=== PATIENT | female | born 1940 | race African-American/Black ===

== ENCOUNTER → 2017-04-17 | Outpatient (CLI) | payer MEDICARE, MEDICAID ==
--- NOTE | 2017-04-17 17:29 | WOMENS IMAGING REPORT ---
EXAM DESCRIPTION: LEFT SCREENING MAMMO W/CAD COMPLETED DATE/TIME: 04/17/2017 4:03 pm REASON FOR STUDY: ROUTINE SCREENING; Z12.31 Z12.31 ENCNTR SCREEN MAMMOGRAM FOR MALIGNANT NEOPLASM O F ENEIDA COMPARISON: 08/02/2013 and 07/24/2012. TECHNIQUE: Standard craniocaudal and mediolateral oblique views of the breast recorded using digital acquisition. LIMITATIONS: None. FINDINGS: BREAST: left Findings present which are benign by mammographic criteria. No suspicious masses, calcifications or a rchitectural distortion. Pertinent benign findings: Stable calcifications. Read with the assistance of CAD. .[facility] - R2 Cenova Version 1.3 .[facility] Imaging - R2 Cenova Version 1.3 .[facility] - R2 Cenova Version 2.4 .[facility] - R2 Cenova Version 2.4 .[facility] - R2 All Source Intelligence Version 9.2 Benign mammographic findings may include one or more of the following: Smooth masses, popcorn/rim/co arse calcifications, asymmetries, post-procedure changes, and lesions with long-standing stability. IMPRESSION: NORMAL MAMMOGRAM. BIRADS 2. BREAST DENSITY: b. There are scattered areas of fibroglandular density. BIRAD: 2 BENIGN FINDING(S) RECOMMENDATION: RECOMMENDATION: ROUTINE SCREENING. COMMENT: The patient has been notified of the results by letter per SA requirements. Additional no tification policies are in place for contacting patient with suspicious or incomplete findings. Quality ID #[id number]: The [employer] recommends an annual screening mammogram for women aged 40 years or over. This facility utilizes a reminder system to ensure that all patients receive reminder letters, and/or direct phone calls for appointments. This includes reminders for routine scr eening mammograms, diagnostic mammograms, or other Breast Imaging Interventions when appropriate. Th is patient will be placed in the appropriate reminder system. The [employer] (ACR) has developed recommendations for screening MRI of the breast s in certain patient populations, to be used in conjunction with mammography. Breast MRI surveillance may be appropriate for women with more than 20% lifetime risk of developing breast cancer as determi david by genetic testing, significant family history of the disease, or history of mantle radiation for Hodgkins Disease. ACR Practice Guidelines 2008. TECHNICAL DOCUMENTATION: FINDING NUMBER: (1) ASSESSMENT: (1) JOB ID: [id number] [employer]- All Rights Reserved
== END ==
LOC: WI 15:21
PROVIDERS: ATTEND Internal Medicine
DX: Z12.31 Encounter for screening mammogram for malignant neoplasm of breast (principal)
CPT/HCPCS: G0202-52

== ENCOUNTER → 2017-06-21 | Outpatient (CLI) | payer MEDICARE, MEDICAID ==
[~2017-06-21] MED LIST: AMINOPHYLLINE INJ/PF 250 MG/10 ML SDV IV ONE; REGADENOSON INJ 0.4 MG/5 ML DISP.SYRIN IV ONE
--- NOTE | 2017-06-22 11:04 | DRAGON STRESS TEST REPORT ---
INTRAVENOUS LEXISCAN CARDIOLITE STRESS TEST USING SINGLE PHOTON EMMISION COMPUTERIZED TOMOGRAPHIC. INDICATION : Coronary artery disease CARDIAC RISK FACTORS: Hypertension, dyslipidemia, history of heart disease with stent placement in 2010 RESTING EKG: Sinus rhythm without any baseline ST-T wave changes STRESS EKG: No significant changes noted with LexiScan bolus REASON FOR TERMINATION: Protocol. PROCEDURE REPORT: Baseline heart rate 77 beats per minute with blood pressure of 149/80. Patient had no significant complaints. Heart rate at 2 minutes post bolus 96 with a blood pressure of 146/83 3 minutes post bolus heart rate 86 with blood pressure of 122/80. No significant EKG changes were noted. Patient had no significant complaints during the procedure or postprocedure. Patient injected with Aminophyllin 75 mg at 3 minutes or later after Lexiscan bolus. CONCLUSIONS: Normal EKG and hemodynamic response to IV LexiScan. NUCLEAR DATA: At rest the patient was given 9.40 millicuries of technetium 99 sestamibi injected intravenously. As per protocol rest gated SPECT images were obtained. Subsequently the patient was given intravenous LexiScan at a dose of 0.4 mg in 5 mL intravenously, followed by flush with normal saline. Subsequently the stress dose of 32.9 millicuries of technetium 99 sestamibi was injected intravenously. As per protocol stress gated images were obtained. NUCLEAR INTERPRETATION: Both raw and processed data were used for interpretation. Visual, qualitative, computer-generated quantitative data was used. There was good myocardial uptake of technetium compound. Motion artifact and soft tissue attenuations were noted. Increased visceral uptake was noted. No definitive areas of transient perfusion defect noted. No definitive areas of fixed perfusion defect or scars noted, except for mild fixed defect in the mid and basal inferior wall consistent with prior myocardial infarction. EKG gated imaging showed LV EF at 54 %, rest and stress gated EF similar visually. Mild basal and mid inferior wall hypokinesia noted. T I D. ratio was 0.92. Lung heart ratio noted to be within normal limits 0.26. No significant extracardiac and abnormal radiotracer activities were noted. RV free wall uptake was noted to be WNL. IMPRESSION: Also refer to comments under nuclear interpretation. Also test results needs to be interpreted in the context of pretest probability. 1. There is no definitive scintigraphic evidence of LexiScan induced myocardial ischemia. 2. Mild fixed defect noted in the mid and basal inferior wall consistent with mild scar. 3. EKG gated imaging shows left ventricular ejection fraction of approximately 54% mild basal and mid inferior wall hypokinesia noted. 4. Clinical correlation requested as occasionally single vessel disease or balanced ischemia could be missed. In approximately 10% of the cases Lexiscan may not cause adequate vasodilatory stress. RECOMMENDATIONS: Aggressive risk factor modification, medical therapy. Clinical correlation with echocardiogram derived ejection fraction. Inability to exercise by itself can lead to increased cardiovascular event risks. Consider cardiology consultation and or follow-up if clinically indicated. I AM AVAILABLE FOR CARDIOLOGY CONSULTATION AND FOLLOWUP IF REQUESTED BY PMD Freida Chambers M.D., MASOU[place] Registered Art Therapist receiving worker, Board certified in cardiovascular diseases, Nuclear cardiology, Echocardiography Cardiac CT and cardiac MRI Ph. [phone] [facility]
== END ==
LOC: RAD 07:13
PROVIDERS: ATTEND Internal Medicine
DX: I25.10 Atherosclerotic heart disease of native coronary artery without angina pectoris (principal)
CPT/HCPCS: 93017; 78452; A9500; J2785; J0280; Q9969

== ENCOUNTER 2017-08-18 16:58 | Observation (INO) | payer MEDICARE, MEDICAID ==
[2017-08-18] MEDS ORDERED: NORMAL SALINE 1000 ML 1,000 ML IV PRN (18:11)
--- NOTE | 2017-08-18 18:25 | EKG REPORT ---
SEVERITY:- ABNORMAL ECG - SINUS RHYTHM BORDERLINE T WAVE ABNORMALITIES : Confirmed by: Gilmar Fernando MD 18-Aug-2017 18:25:10
[2017-08-18] MEDS ORDERED: INFLUENZA ADLT QUAD (36MOS+) 2017-18 VAC 0.5 ML SYR IM PRN (18:39)
--- NOTE | 2017-08-18 18:40 | RADIOLOGY REPORT (SQ) ---
EXAM DESCRIPTION: CHEST SINGLE VIEW COMPLETED DATE/TIME: 08/18/2017 6:31 pm REASON FOR STUDY: hypotension/chest pain COMPARISON: 10/06/2011 EXAM PARAMETERS: NUMBER OF VIEWS: One view. TECHNIQUE: Single frontal radiographic view of the chest acquired. RADIATION DOSE: NA LIMITATIONS: None. FINDINGS: LUNGS AND PLEURA: No opacities, masses or pneumothorax. No pleural effusion. MEDIASTINUM AND HILAR STRUCTURES: No masses. Contour normal. HEART AND VASCULAR STRUCTURES: Heart normal in size. Normal vasculature. BONES: No acute findings. HARDWARE: None in the chest. OTHER: No other significant finding. IMPRESSION: NO ACUTE RADIOGRAPHIC FINDING IN THE CHEST. TECHNICAL DOCUMENTATION: JOB ID: [id number]
[2017-08-18] MEDS ORDERED: LIDOCAINE 1% INJ-PF (10 MG/ML) 30 ML SDV ONE (18:59)
[2017-08-18 21:46] LABS: HEMATOCRIT 34.6 % (36.0-47.0); HEMOGLOBIN 11.9 g/dL (12.0-15.5); HGB HCT DIFFERENCE 1.1; MEAN CORPUSCULAR HEMOGLOBIN 31.2 pg (27.0-33.4); MEAN CORPUSCULAR HGB CONC 34.5 g/dL (32.0-36.0); MEAN CORPUSCULAR VOLUME 91 fl (80-97); RED BLOOD COUNT 3.82 10^6/uL (3.72-5.28); RED CELL DISTRIBUTION WIDTH 13.7 % (11.5-14.0)
--- NOTE | 2017-08-18 21:53 | OPERATIVE REPORT E ---
Operative Report NAME: ALEISHA MIMS : 1940 AGE: 77Y DATE OF SURGERY: 08/18/2017 ROOM: 309 PREOPERATIVE DIAGNOSIS: Poor veins for IV access. POSTOPERATIVE DIAGNOSIS: Poor veins for IV access. OPERATIONS: Placement of central line right internal jugular vein. SURGEON: CORBY BECERRA M.D. ANESTHESIA: Local. INDICATION: This is a 77-year-old female who has poor veins for IV access and needed a central line. DESCRIPTION OF PROCEDURE: The patient was placed in Trendelenburg position, the right neck prepped and draped in the usual sterile fashion. Local anesthesia was infiltrated above the clavicle between the sternal and clavicular head of the sternocleidomastoid muscle. The right internal jugular vein was then punctured and guidewire passed through the needle in the direction of the superior vena cava. The insertion site was then dilated and a triple lumen inserted through the guidewire to a distance of about 15 cm. Next, the catheter was then anchored to the skin with 3-0 silk. All the 3 ports were then irrigated nicely and aspirated blood easily. A Biopatch was placed at the insertion site and a transparent dressing placed over the catheter. The patient tolerated the procedure well. A chest x-ray will be obtained for placement to rule out any pneumothorax. DICTATING PHYSICIAN: CORBY BECERRA M.D. [id number] PHY#: [id number] ID: [id number] JOB#: [id number] ACCT: [id number] cc:CORBY BECERRA M.D. >
--- NOTE | 2017-08-18 21:57 | RADIOLOGY REPORT (SQ) ---
EXAM DESCRIPTION: CHEST SINGLE VIEW COMPLETED DATE/TIME: 08/18/2017 9:42 pm REASON FOR STUDY: central line verification COMPARISON: 08/18/2017 EXAM PARAMETERS: NUMBER OF VIEWS: One view. TECHNIQUE: Single frontal radiographic view of the chest acquired. RADIATION DOSE: NA LIMITATIONS: None. FINDINGS: LUNGS AND PLEURA: No opacities, masses or pneumothorax. No pleural effusion. MEDIASTINUM AND HILAR STRUCTURES: No masses. Contour stable. HEART AND VASCULAR STRUCTURES: Heart normal in size. Normal vasculature. BONES: No acute findings. HARDWARE: Right IJ venous catheter terminates within the caval atrial junction. Surgical clips right axilla/ chest wall. OTHER: No other significant finding. IMPRESSION: SATISFACTORY PLACEMENT OF RIGHT IJ VENOUS CATHETER WITHOUT COMPLICATION. OTHERWISE STAB LE APPEARANCE OF THE CHEST. TECHNICAL DOCUMENTATION: JOB ID: [id number]
[2017-08-18 22:03] LABS: ALANINE AMINOTRANSFERASE 20 U/L (9-52); ALBUMIN 3.5 g/dL (3.5-5.0); ALKALINE PHOSPHATASE 114 U/L (38-126); ANION GAP 9 (5-19); ASPARTATE AMINO TRANSFERASE 21 U/L (14-36); BILIRUBIN,DIRECT 0.3 mg/dL (0.0-0.4); BILIRUBIN,TOTAL 0.6 mg/dL (0.2-1.3); BLOOD UREA NITROGEN 19 mg/dL (7-20); CALCIUM 9.9 mg/dL (8.4-10.2); CARBON DIOXIDE 25 mmol/L (22-30); CHLORIDE 94 mmol/L (98-107); CREATINE KINASE 51 U/L (30-135); CREATININE RESULT 1.29 mg/dL (0.52-1.25); GLUCOSE 143 mg/dL (75-110); POTASSIUM 3.8 mmol/L (3.6-5.0); SODIUM 128.1 mmol/L (137-145)
[2017-08-18 22:13] LABS: CREATINE KINASE MB 1.49 ng/mL (<4.55)
[2017-08-18 22:17] LABS: TROPONIN I < 0.012 ng/mL
[2017-08-19 00:28] LABS: APPEARANCE,URINE SLIGHTLY-CLOUDY; BILIRUBIN,URINE NEGATIVE (NEGATIVE); GLUCOSE, URINE NEGATIVE (NEGATIVE); KETONES,URINE NEGATIVE (NEGATIVE); LEUKOCYTE ESTERASE,URINE LARGE (NEGATIVE); NITRITE,URINE NEGATIVE (NEGATIVE); PROTEIN,URINE NEGATIVE (NEGATIVE); URINE SPECIFIC GRAVITY 1.012; UROBILINOGEN,URINE NEGATIVE mg/dL (<2.0)
[2017-08-19 06:55] LABS: CREATINE KINASE MB 0.81 ng/mL (<4.55); TROPONIN I 0.016 ng/mL
[2017-08-19 11:09] LABS: ALANINE AMINOTRANSFERASE 17 U/L (9-52); ALBUMIN 3.2 g/dL (3.5-5.0); ALKALINE PHOSPHATASE 104 U/L (38-126); ANION GAP 11 (5-19); ASPARTATE AMINO TRANSFERASE 20 U/L (14-36); BILIRUBIN,DIRECT 0.3 mg/dL (0.0-0.4); BILIRUBIN,TOTAL 0.6 mg/dL (0.2-1.3); BLOOD UREA NITROGEN 14 mg/dL (7-20); CALCIUM 9.4 mg/dL (8.4-10.2); CARBON DIOXIDE 23 mmol/L (22-30); CHLORIDE 100 mmol/L (98-107); CREATININE RESULT 1.09 mg/dL (0.52-1.25); GLUCOSE 154 mg/dL (75-110); POTASSIUM 3.8 mmol/L (3.6-5.0); SODIUM 133.7 mmol/L (137-145); TOTAL PROTEIN 6.5 g/dL (6.3-8.2)
--- NOTE | 2017-08-19 11:57 | PDOC H&P ---
History of Present Illness Admission Date/PCP: 08/18/17 16:58 MARLENE BELTRÁN MD History of Present Illness: ALEISHA MIMS is a 77 year old female, she has a history of ischemic heart disease, baseline dementia, she came to the office with family for evaluation of , weakness, fatigue, dizziness and low blood pressure. In the office she was evaluated the blood pressure could not be recorded, she was admitted directly from the office into the hospital for evaluation of the low blood pressure. When she arrived on the floor in the hospital the blood pressure recorded was 90 systolic, the blood work showed serum creatinine 1.2, the urine dipstick was positive for leukocyte esterase with pyuria but she had no urinary symptoms of frequency dysuria or urgency. She was admitted for observation, she was treated with IV fluids subsequent blood pressure was normal Past Medical History Cardiac Medical History: Reports: Myocardial Infarction, Hypertension Pulmonary Medical History: Reports: Pneumonia Malignancy Medical History: Reports: Breast Cancer - Rt Breast GI Medical History: Reports: Gastroesophageal Reflux Disease Musculoskeltal Medical History: Reports: Arthritis Psychiatric Medical History: Reports: Dementia Hematology: Past Surgical History Past Surgical History: Reports: Appendectomy, Cardiac Catheterization, Coronary Stent, Mastectomy - RT BREAST REMOVED, AVOID RT ARM Social History Smoking Status: Former Smoker Frequency of Alcohol Use: None Hx Recreational Drug Use: No Hx Prescription Drug Abuse: No Family History Family History: Reviewed & Not Pertinent Parental Family History Reviewed: Yes Children Family History Reviewed: Yes Sibling(s) Family History Reviewed.: Yes Medication/Allergy Home Medications: Clopidogrel Bisulfate [Plavix 75 Mg Tablet] 75 mg PO DAILY 10/06/11 Metoprolol Succinate [Toprol-Xl 50 Mg Tab.Sr] 50 mg PO DAILY 10/06/11 Pantoprazole Sodium 40 mg PO DAILY 10/06/11 Valsartan/Hydrochlorothiazide [Diovan Hct 160-25 mg Tablet] 1 tab PO DAILY 10/06 Acetaminophen [Non-Aspirin Pain Relief] 2 tab PO DAILY 08/18/17 Aspirin [Aspirin EC] 81 mg PO DAILY 08/18/17 Atorvastatin Calcium [Lipitor 80 mg Tablet] 1 tab PO DAILY 08/18/17 Donepezil HCl 1 tab PO QHS 08/18/17 Multivit-Min/Iron/Folic/Lutein [Centrum Silver Women Tablet] 1 each PO DAILY Allergies/Adverse Reactions: oxycodone HCl [From Percocet] Allergy (Verified 01/31/11 11:45) Generalized Itching codeine Adverse Reaction (Mild, Verified 08/19/17 05:53) Review of Systems Constitutional: PRESENT: anorexia Eyes: ABSENT: visual disturbances Ears: ABSENT: hearing changes Cardiovascular: ABSENT: chest pain, dyspnea on exertion, edema, orthropnea, palpitations Respiratory: ABSENT: cough, hemoptysis Gastrointestinal: ABSENT: abdominal pain, constipation, diarrhea, hematemesis, hematochezia, nausea, vomiting Genitourinary: ABSENT: dysuria, hematuria Musculoskeletal: ABSENT: joint swelling Integumentary: ABSENT: rash, wounds Neurological: ABSENT: abnormal gait, abnormal speech, confusion, dizziness, focal weakness, syncope Psychiatric: ABSENT: anxiety, depression, homidical ideation, suicidal ideation Endocrine: ABSENT: cold intolerance, heat intolerance, menstrual abnormalities, polydipsia, polyuria Hematologic/Lymphatic: ABSENT: easy bleeding, easy bruising, lymphadenopathy Physical Exam Vital Signs: Temp Pulse Resp BP Pulse Ox 98.1 F 71 18 117/58 L 98 08/19/17 04:01 08/19/17 07:00 08/19/17 04:01 08/19/17 04:01 08/19/17 04:01 Intake & Output 08/18/17 08/19/17 08/20/17 06:59 06:59 06:59 Intake Total 1630 Output Total 700 Balance 930 Weight 67.132 kg General appearance: PRESENT: no acute distress, well-developed, well-nourished Head exam: PRESENT: atraumatic, normocephalic Eye exam: PRESENT: conjunctiva pink, EOMI, PERRLA Ear exam: PRESENT: normal external ear exam Mouth exam: PRESENT: moist, tongue midline Neck exam: PRESENT: full ROM Respiratory exam: PRESENT: clear to auscultation desiree Cardiovascular exam: PRESENT: RRR, +S1, +S2 Pulses: PRESENT: normal dorsalis pedis pul, +2 pedal pulses bilateral Vascular exam: PRESENT: normal capillary refill GI/Abdominal exam: PRESENT: normal bowel sounds, soft Rectal exam: PRESENT: deferred Neurological exam: PRESENT: alert, awake, oriented to person, oriented to place , oriented to time, oriented to situation, CN II-XII grossly intact Psychiatric exam: PRESENT: appropriate affect, normal mood Skin exam: PRESENT: dry, intact, warm Results Laboratory Results: 08/18/17 21:30 08/19/17 10:10 08/18/17 08/18/17 08/18/17 21:30 21:30 23:55 WBC 9.0 RBC 3.82 Hgb 11.9 L Hct 34.6 L MCV 91 MCH 31.2 MCHC 34.5 RDW 13.7 Plt Count 333 Sodium 128.1 L Potassium 3.8 Chloride 94 L Carbon Dioxide 25 Anion Gap 9 BUN 19 Creatinine 1.29 H Est GFR ( Amer) 49 L Est GFR (Non-Af Amer) 40 L Glucose 143 H Serum Osmolality Calcium 9.9 Total Bilirubin 0.6 AST 21 ALT 20 Alkaline Phosphatase 114 Total Protein 7.0 Albumin 3.5 Urine Color YELLOW Urine Appearance SLIGHTLY-CLOUDY Urine pH 5.0 Ur Specific [place] 1.012 Urine Protein NEGATIVE Urine Glucose (UA) NEGATIVE Urine Ketones NEGATIVE Urine Blood NEGATIVE Urine Nitrite NEGATIVE Ur Leukocyte Esterase LARGE H Urine WBC (Auto) 10 Urine RBC (Auto) 5 08/19/17 08/19/17 10:10 10:10 WBC RBC Hgb Hct MCV MCH MCHC RDW Plt Count Sodium 133.7 L Potassium 3.8 Chloride 100 Carbon Dioxide 23 Anion Gap 11 BUN 14 Creatinine 1.09 Est GFR ( Amer) 59 L Est GFR (Non-Af Amer) 49 L Glucose 154 H Serum Osmolality 277 Calcium 9.4 Total Bilirubin 0.6 AST 20 ALT 17 Alkaline Phosphatase 104 Total Protein 6.5 Albumin 3.2 L Urine Color Urine Appearance Urine pH Ur Specific [place] Urine Protein Urine Glucose (UA) Urine Ketones Urine Blood Urine Nitrite Ur Leukocyte Esterase Urine WBC (Auto) Urine RBC (Auto) 08/18/17 08/18/17 08/19/17 21:30 21:30 05:30 Creatine Kinase 51 59 CK-MB (CK-2) 1.49 Troponin I < 0.012 08/19/17 05:30 Creatine Kinase CK-MB (CK-2) 0.81 Troponin I 0.016 Impressions: Chest X-Ray 08/18/17 21:24 IMPRESSION: SATISFACTORY PLACEMENT OF RIGHT IJ VENOUS CATHETER WITHOUT COMPLICATION. OTHERWISE STABLE APPEARANCE OF THE CHEST. Assessment & Plan - Diagnosis (1) Hypotension Qualifiers: Hypotension type: unspecified hypotension type Qualified Code(s): I95.9 - Hypotension, unspecified Is this a current diagnosis for this admission?: Yes Plan: The low blood pressure is most likely from dehydration, she is admitted for hydration (2) Acute kidney injury Is this a current diagnosis for this admission?: Yes Plan: She has prerenal acute kidney injury (3) Coronary artery disease Qualifiers: Coronary Disease-Associated Artery/Lesion type: unspecified vessel or lesion type [place] vs. transplanted heart: [place] heart Associated angina: without angina Qualified Code(s): I25.10 - Atherosclerotic heart disease of [place] coronary artery without angina pectoris Is this a current diagnosis for this admission?: Yes (4) Dementia Qualifiers: Dementia type: unspecified type Dementia behavioral disturbance: without behavioral disturbance Qualified Code(s): F03.90 - Unspecified dementia without behavioral disturbance Is this a current diagnosis for this admission?: Yes
--- NOTE | 2017-08-19 12:00 | PDOC DISCHARGE SUMMARY ---
General - Admit/Disc Date/PCP Admission Date/Primary Care Provider: 08/18/17 16:58 MARLENE BELTRÁN MD Discharge Date: 08/19/17 - Discharge Diagnosis (1) Hypotension Is this a current diagnosis for this admission?: Yes (2) Acute kidney injury Is this a current diagnosis for this admission?: Yes (3) Coronary artery disease Is this a current diagnosis for this admission?: Yes (4) Dementia Is this a current diagnosis for this admission?: Yes - Additional Information Discharge Diet: As Tolerated Discharge Activity: Activity As Tolerated Home Medications: Clopidogrel Bisulfate [Plavix 75 mg Tablet] 75 mg PO DAILY 10/06/11 Metoprolol Succinate [Toprol Xl 50 mg Tab.sr] 50 mg PO DAILY 10/06/11 Pantoprazole Sodium 40 mg PO DAILY 10/06/11 Valsartan/Hydrochlorothiazide [Diovan Hct 160-25 mg Tablet] 1 tab PO DAILY 10/06 Acetaminophen [Non-Aspirin Pain Relief] 2 tab PO DAILY 08/18/17 Aspirin [Aspirin EC] 81 mg PO DAILY 08/18/17 Atorvastatin Calcium [Lipitor 80 mg Tablet] 1 tab PO DAILY 08/18/17 Donepezil HCl 1 tab PO QHS 08/18/17 Multivit-Min/Iron/Folic/Lutein [Centrum Silver Women Tablet] 1 each PO DAILY History of Present Illness History of Present Illness: ALEISHA MIMS is a 77 year old female, she has a history of ischemic heart disease, baseline dementia, she came to the office with family for evaluation of , weakness, fatigue, dizziness and low blood pressure. In the office she was evaluated the blood pressure could not be recorded, she was admitted directly from the office into the hospital for evaluation of the low blood pressure. When she arrived on the floor in the hospital the blood pressure recorded was 90 systolic, the blood work showed serum creatinine 1.2, the urine dipstick was positive for leukocyte esterase with pyuria but she had no urinary symptoms of frequency dysuria or urgency. She was admitted for observation, she was treated with IV fluids subsequent blood pressure was normal Hospital Course Hospital Course: Patient was admitted for evaluation of low blood pressure, she was treated with IV fluids, she also had prerenal acute kidney injury, with hydration there was normalization of the kidney function Physical Exam Vital Signs: Temp Pulse Resp BP Pulse Ox 98.1 F 71 18 117/58 L 98 08/19/17 04:01 08/19/17 07:00 08/19/17 04:01 08/19/17 04:01 08/19/17 04:01 Intake & Output 08/18/17 08/19/17 08/20/17 06:59 06:59 06:59 Intake Total 1630 Output Total 700 Balance 930 Weight 67.132 kg General appearance: PRESENT: no acute distress, well-developed, well-nourished Head exam: PRESENT: atraumatic, normocephalic Eye exam: PRESENT: conjunctiva pink, EOMI, PERRLA Ear exam: PRESENT: normal external ear exam Mouth exam: PRESENT: moist, tongue midline Neck exam: PRESENT: full ROM Respiratory exam: PRESENT: clear to auscultation desiree Cardiovascular exam: PRESENT: RRR, +S1, +S2 Pulses: PRESENT: normal dorsalis pedis pul, +2 pedal pulses bilateral Vascular exam: PRESENT: normal capillary refill GI/Abdominal exam: PRESENT: normal bowel sounds, soft Rectal exam: PRESENT: deferred Neurological exam: PRESENT: alert, awake, oriented to person, oriented to place , oriented to time, oriented to situation, CN II-XII grossly intact Psychiatric exam: PRESENT: appropriate affect, normal mood Skin exam: PRESENT: dry, intact, warm Results Laboratory Results: 08/18/17 21:30 08/19/17 10:10 08/18/17 08/18/17 08/18/17 21:30 21:30 23:55 WBC 9.0 RBC 3.82 Hgb 11.9 L Hct 34.6 L MCV 91 MCH 31.2 MCHC 34.5 RDW 13.7 Plt Count 333 Sodium 128.1 L Potassium 3.8 Chloride 94 L Carbon Dioxide 25 Anion Gap 9 BUN 19 Creatinine 1.29 H Est GFR ( Amer) 49 L Est GFR (Non-Af Amer) 40 L Glucose 143 H Serum Osmolality Calcium 9.9 Total Bilirubin 0.6 AST 21 ALT 20 Alkaline Phosphatase 114 Total Protein 7.0 Albumin 3.5 Urine Color YELLOW Urine Appearance SLIGHTLY-CLOUDY Urine pH 5.0 Ur Specific [place] 1.012 Urine Protein NEGATIVE Urine Glucose (UA) NEGATIVE Urine Ketones NEGATIVE Urine Blood NEGATIVE Urine Nitrite NEGATIVE Ur Leukocyte Esterase LARGE H Urine WBC (Auto) 10 Urine RBC (Auto) 5 10/14/17 10/14/17 10:10 10:10 WBC RBC Hgb Hct MCV MCH MCHC RDW Plt Count Sodium 133.7 L Potassium 3.8 Chloride 100 Carbon Dioxide 23 Anion Gap 11 BUN 14 Creatinine 1.09 Est GFR ( Amer) 59 L Est GFR (Non-Af Amer) 49 L Glucose 154 H Serum Osmolality 277 Calcium 9.4 Total Bilirubin 0.6 AST 20 ALT 17 Alkaline Phosphatase 104 Total Protein 6.5 Albumin 3.2 L Urine Color Urine Appearance Urine pH Ur Specific [place] Urine Protein Urine Glucose (UA) Urine Ketones Urine Blood Urine Nitrite Ur Leukocyte Esterase Urine WBC (Auto) Urine RBC (Auto) 08/18/17 08/18/17 08/19/17 21:30 21:30 05:30 Creatine Kinase 51 59 CK-MB (CK-2) 1.49 Troponin I < 0.012 08/19/17 05:30 Creatine Kinase CK-MB (CK-2) 0.81 Troponin I 0.016 Impressions: Chest X-Ray 08/18/17 21:24 IMPRESSION: SATISFACTORY PLACEMENT OF RIGHT IJ VENOUS CATHETER WITHOUT COMPLICATION. OTHERWISE STABLE APPEARANCE OF THE CHEST.
[2017-08-19 12:08] VITALS: BP 127/60
== END 2017-08-19 14:04 | disposition home or self-care (01) ==
LOC: 3N 16:58
PROVIDERS: ADMIT Internal Medicine; ATTEND Internal Medicine
PROC: 02HV33Z Insertion of Infusion Device into Superior Vena Cava, Percutaneous Approach (ICD-10-PCS; principal; 2017-08-18)
DX: I95.9 Hypotension, unspecified (principal); N17.9 Acute kidney failure, unspecified; I25.10 Atherosclerotic heart disease of native coronary artery without angina pectoris; F03.90 Unspecified dementia, unspecified severity, without behavioral disturbance, psychotic disturbance, mood disturbance, and anxiety; I10 Essential (primary) hypertension; R63.0 Anorexia; E78.00 Pure hypercholesterolemia, unspecified; I25.2 Old myocardial infarction; Z85.3 Personal history of malignant neoplasm of breast; Z79.899 Other long term (current) drug therapy; Z79.82 Long term (current) use of aspirin; Z79.02 Long term (current) use of antithrombotics/antiplatelets; Z90.11 Acquired absence of right breast and nipple; Z95.5 Presence of coronary angioplasty implant and graft; Z90.49 Acquired absence of other specified parts of digestive tract; Z87.891 Personal history of nicotine dependence; Z68.35 Body mass index [BMI] 35.0-35.9, adult; Z87.11 Personal history of peptic ulcer disease
CPT/HCPCS: 36415 ×2; 82553 ×2; 82550 ×2; 83930; 85027; 80076; 80048; 80053; 81001; 84484 ×2; 71010; 93005; 93010; 36558; C1751; J7030; J1642 ×2; G0378; G0379